=== PATIENT | female | born 1940 | race Caucasian/White ===

== ENCOUNTER 2017-01-05 09:26 | Outpatient (CLI) | payer OTHER ==
[2017-01-05 10:26] LABS: eGFR (African) > 60; eGFR (Non-African) > 60
== END 2017-01-05 09:27 ==
LOC: LAB 09:26
PROVIDERS: ATTEND Family Medicine
DX: E11.9 Type 2 diabetes mellitus without complications (principal); I10 Essential (primary) hypertension
CPT/HCPCS: 36415; 80053; 83036

== ENCOUNTER 2017-08-03 08:30 | Outpatient (CLI) | payer OTHER ==
[2017-08-03 10:50] LABS: eGFR (African) > 60; eGFR (Non-African) > 60
== END 2017-08-03 08:32 ==
LOC: LAB 08:30
PROVIDERS: ATTEND Family Medicine
DX: E11.9 Type 2 diabetes mellitus without complications (principal)
CPT/HCPCS: 36415; 80053; 80061; 82043; 83036

== ENCOUNTER 2017-08-29 02:48 | Emergency (ER) | payer OTHER ==
[2017-08-29] MEDS ORDERED: 0.9 % SODIUM CHLORIDE 1,000 ML IV ONE (03:10)
--- NOTE | 2017-08-29 03:10 | ED Physician Documentation ---
General Adult - HISTORIAN Historian: patient, spouse - HPI Stated Complaint: near syncope Chief Complaint: General Adult Timing: still present Severity: moderate Further Comments: yes (Pt is a 77 yo female who had a near syncopal episode at home. Pt was up to bathroom to have bm when episode occurred. Pt has afib and takes BP/heart meds, lisinopril, metoprolol and digoxin as well as coumadin. She presents with bp 61/31 and hr in 40's. Pt states that she did no acutally lose consciousness. Her kept her from falling when she became very lightheaded.) - ROS CONST: weakness, other (lightheaded) EYES/ENT: none CVS/RESP: none GI/: nausea (mild) MS/SKIN/LYMPH: none NEURO/PSYCH: fainting (near syncope) - PAST HX Past History: other (DM, Afib, HTN, low back pain) Allergies/Adverse Reactions: Allergies Allergy/AdvReac Type Severity Reaction Status Date / Time aspirin Allergy Hives Unverified 07/14/14 13:36 atorvastatin calcium Allergy Hives Unverified 07/14/14 13:36 [From Lipitor] oxytetracycline HCl Allergy Hives Unverified 07/14/14 13:36 [From Terramycin with Polymyxin B] Penicillins Allergy Hives Unverified 07/14/14 13:36 polymyxin B sulfate Allergy Hives Unverified 07/14/14 13:36 [From Terramycin with Polymyxin B] Sulfa (Sulfonamide Allergy Hives Unverified 07/14/14 13:36 Antibiotics) sulfamethoxazole Allergy Hives Unverified 07/14/14 13:36 [From Septra] trimethoprim [From Septra] Allergy Hives Unverified 07/14/14 13:36 Home Medications: Ambulatory Orders Medication Instructions Recorded Lisinopril 5Mg [Prinivil] 5 mg PO DAILY u2 07/14/14 Nitroglycerin 0.4 mg SL u2 07/14/14 Pravastatin Sodium 40 mg PO HS u2 07/14/14 - SOCIAL HX Smoking History: quit greater than 1 year - FAMILY HX Family History: No - REVIEWED ASSESSMENTS Nursing Assessment Reviewed: Yes Vitals Reviewed: Yes Progress - Progress Progress: 1 L IVF in ER BP very gradually improved over the coarse of 2 hrs in ER BP 61/31 --> 135/74 HR 40's --> 70's CXR: Single view of the chest demonstrates a normal cardiac and mediastinal silhouette. Chronic interstitial changes. Lung perez without focal infiltrate. No blunting of the costophrenic margins. Hilar granuloma. Articular degenerative changes. Impression: Chronic parenchymal changes. No acute appearing pulmonary process. Pt advised to be admitted to [facility] for monitoring, but refused and signed out. Pt has elevated jujMDC=7712.7 - EKG/XRAY/CT EKG: rhythm (afib, bradycardia HR=approx 50; ) General Adult Physical Exam - PHYSICAL EXAM GENERAL APPEARANCE: mild distress EENT: pharynx normal NECK: normal inspection, supple RESPIRATORY: no resp distress, chest non-tender, breath sounds normal CVS: irregularly irregular rhy, bradycardia ABDOMEN: soft, no organomegaly, normal bowel sounds BACK: normal inspection, no CVA tenderness SKIN: warm/dry, pallor EXTREMITIES: non-tender, normal range of motion, no evidence of injury, no edema NEURO: oriented X3, motor nml, sensation nml Discharge Clincal Impression: near syncope, afib with bradycardia, elevated pro BNP Referrals: Luis Covington MD [Primary Care Provider] - Condition: Fair Disposition: AGAINST MEDICAL ADVICE Decision to Admit: NO Decision Time: 05:08
[2017-08-29 03:25] LABS: BASOPHILS % 0.4 (0.0-1.5); EOSINOPHILS % 1.8 % (0.0-6.8); MEAN CORPUSCULAR HEMOGLOBIN 28.8 pg (28.0-34.0); MEAN CORPUSCULAR VOLUME 91.8 fl (80.0-100.0); MONOCYTES % 4.3 % (0.0-11.0); NEUTROPHILS # 5.2 # k/uL (1.4-7.7)
[2017-08-29 03:43] LABS: eGFR (African) > 60; eGFR (Non-African) > 60
[2017-08-29 05:12] VITALS: BP 135/74
--- NOTE | 2017-08-29 06:47 | Diagnostic Imaging Report ---
NEERU MCLEAN [facility] [address] [facility] [address] [address] Report Submission Date: August 29, 2017 4:14:41 AM CDT Patient Study Name: GIFTY CRUZ Date: August 29, 2017 3:59:37 AM CDT Modality Type: DX Gender: F Description: CHEST : 44 Institution: [facility] Physician: NEERU MCLEAN Examination: Portable chest History: Evaluate lungs. SYNCOPE, LIGHTHEADED (Hx) / ITS.REASON syncope (DICOM Hx) / ITS.REASON syncope (Pt comments) Comparison exam: None provided. Findings: Single view of the chest demonstrates a normal cardiac and mediastinal silhouette. Chronic interstitial changes. Lung perez without focal infiltrate. No blunting of the costophrenic margins. Hilar granuloma. Articular degenerative changes. Impression: Chronic parenchymal changes. No acute appearing pulmonary process. Electronically signed on August 29, 2017 4:14:41 AM CDT by: Sammy WOOD
== END 2017-08-29 05:05 | disposition left against medical advice (07) ==
LOC: ED 02:48
DX: R55 Syncope and collapse (principal); I49.5 Sick sinus syndrome; I48.91 Unspecified atrial fibrillation; R79.89 Other specified abnormal findings of blood chemistry
CPT/HCPCS: 71045; 80053; 80162; 82550; 82553; 83880; 84484; 85025; 85610; 96360; 99285; S1016

== ENCOUNTER 2018-01-24 09:09 | Outpatient (CLI) | payer OTHER ==
[2018-01-24 09:56] LABS: eGFR (Non-African) > 60
== END 2018-01-24 09:11 ==
LOC: LAB 09:09
PROVIDERS: ATTEND Family Medicine
DX: E11.9 Type 2 diabetes mellitus without complications (principal); I10 Essential (primary) hypertension
CPT/HCPCS: 36415; 80053; 83036

== ENCOUNTER 2019-01-03 09:19 | Outpatient (CLI) | payer OTHER ==
[2019-01-03 09:54] LABS: A1C 8.8 % (<5.7)
[2019-01-03 10:15] LABS: HDL 32 mg/dL (>40); eGFR (Non-African) > 60
== END 2019-01-03 09:21 ==
LOC: LAB 09:19
PROVIDERS: ATTEND Family Medicine
DX: E11.9 Type 2 diabetes mellitus without complications (principal); I10 Essential (primary) hypertension
CPT/HCPCS: 36415; 80053; 80061; 83036